=== PATIENT | male | born 1995 | race African-American/Black ===

== ENCOUNTER 2020-06-14 00:55 | Emergency (ER) | payer OTHER, SELFPAY ==
[2020-06-14 00:57] VITALS: BP 179/103; PULSE 65; RESP 18; TEMP 36.8; O2SAT 98; BMI 30.2
--- NOTE | 2020-06-14 01:54 | ED.VISSUMM ---
- ER Visit Summary Date of Service: 06/14/20 Chief Complaint: Body fluid exposure History of Present Illness: The patient is a 24 M who presents with body fluid exposure that occurred tonight approximately 4 hours prior to arrival. 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 Patient states he was attempting to place the cap back on the needle and some fluid came out on the needle and went into his left eye. Patient states he washed his eye with eyewash solution immediately. Patient states he was referred to the emergency department to see if there is any possible effects from the heroin going into his eye. Patient denies any visual changes. Patient denies any chest pain or shortness of breath. Patient denies any palpitations. Physical Examination: Vital signs are stable. Patient is afebrile. Patient is in no acute distress. Pupils are equal, round, and reactive to light bilaterally. Extraocular muscles are intact. Conjunctiva is clear. Oral mucosa is pink and moist. Neck is supple. Trachea is midline. There is no JVD. Heart was regular rate and rhythm. Lungs are clear and equal bilaterally. Cranial nerves II through XII are intact. There are no focal motor or sensory deficits. Emergency Department Course and Treatment: Patient states his employer told him to go to [facility] on Monday for lab work for body fluid exposures. Patient does not want any of that done here. Patient is not currently showing any signs of opiate toxicity or overdose. Patient was instructed to follow-up on Monday as instructed. Patient was instructed to use [id number] eyewash as needed. Patient understood and was agreeable with the plan. All questions were answered. Disposition: Discharge home Impression: Body fluid exposure This note was generated with [employer] dictation software. It may contain incorrect words, spelling, and punctuation that were not noted in review of the chart prior to signing ED Disposition - Plan for ED Patient: Disposition: Home or Assisted Living Diagnosis: Exposure to body fluid Instructions: ED Exp Chemical Eye Referrals: [facility],Out of [Primary Care Provider] - 3-5 Days
== END 2020-06-14 02:25 | disposition home or self-care (01) ==
PROVIDERS: Emergency Provider Emergency Medicine
DX: Z77.21 Contact with and (suspected) exposure to potentially hazardous body fluids (principal)
CPT/HCPCS: 99281